=== PATIENT | female | born 1965 | race Caucasian/White ===

== ENCOUNTER → 2016-07-21 | Outpatient (CLI) | payer OTHER ==
--- NOTE | 2016-07-21 13:57 | CT ---
EXAMINATION TYPE: CT ankle RT wo con, CT foot RT wo con DATE OF EXAM: 07/21/2016 1:45 PM COMPARISON: Right ankle and foot x-rays from yesterday. HISTORY: Patient had hi-lo run over foot CT DLP: 187.7 (accession [id number]), 260.90 (accession [id number]) mGycm Automated exposure control for dose reduction was used. Three-D reconstructed images are created on [employer] workstation and reviewed. FINDINGS: There are well-corticated tiny ossific fragment from the medial malleolus favoring old avulsion type fracture. Presence of the adjacent soft tissues falling makes acute fracture line entirely excluded. There is mild to moderate spurring from the lateral malleolus. Some irregularity from the posterior m alleolus may reflect old avulsion fracture on sagittal images. No convincing evidence for acute fract ure or dislocation in the right ankle. Moderate to large superior and inferior calcaneal spurs are present. Distal Achilles tendon is intact . Normal Kegel's fat pad is identified. Mild subcutaneous edema and hematoma along the medial malleol us there is present. Normal sinus tarsi fat is present. The ankle mortise symmetry is preserved. Ther e is small spur from the medial talus on coronal image 12. Images of right foot failed to show linear lucency suspicious for nondisplaced fracture through the d istal diaphysis of the second metatarsal. No acute fracture or dislocation in the forefoot or midfoot is clearly seen. There is moderate right midfoot level particularly dorsal surface of navicular ralph cular relation with the middle cuneiform. There is narrowing and spurring at the lateral cuneiform ar ticulation with middle cuneiform. Mild to moderate spurring at base of second metatarsal through the base of fifth metatarsal. Mild/moderate diffuse subcutaneous edema is present particularly along plan tar surface in the midfoot and forefoot level. Entire first toe is not included. IMPRESSION: AGE INDETERMINATE BUT FAVOR OLD AVULSION TYPE FRACTURES FROM THE MEDIAL MALLEOLUS. NO CONVINCING EVID ENCE FOR ACUTE FRACTURE OR DISLOCATION IN THE RIGHT ANKLE OR FOOT.
== END | disposition home or self-care (01) ==
LOC: RADCTMAIN 12:44
PROVIDERS: ATTEND Orthopaedic Surgery
DX: S92.321D Displaced fracture of second metatarsal bone, right foot, subsequent encounter for fracture with routine healing (principal)